=== PATIENT | female | born 1960 | race Caucasian/White ===

== ENCOUNTER 2019-07-05 06:41 | Day surgery (SDC) | payer OTHER, SELFPAY ==
[2019-07-05] VITALS (8 sets, daily range): BP systolic 95–117; BP diastolic 62–79; PULSE 51–58; RESP 10–15; TEMP 35.9–36.3; O2SAT 94–97; BMI 27.1
--- NOTE | 2019-07-05 | PATH_ITS ---
[facility] Accession Number: [id number] . 01 Material submitted: . esophagus - DISTAL ESOPHAGEAL BIOPSY . 02 Diagnosis: Distal Esophagus, Biopsy: Squamous epithelium with no diagnostic abnormality. 0-1 eosinophils per 40X high-power field. Negative for dysplasia or malignancy. MRV 07/06/2019 0957 Local . 02 Electronically signed: . Ramirez Mayes MD, PhD, Pathologist NPI- [id number] . 01 Gross description: . DISTAL ESOPHAGEAL BIOPSY: Received in formalin are 4 fragment(s) of steven, soft tissue measuring 0.1 x 0.1 x 0.1 cm to 0.3 x 0.2 x 0.2 cm which is entirely submitted and submitted entirely in 1 cassette(s) /[facility] [place] 07/05/20191952 Local . 02 Pathologist provided ICD-10: R07.0 . 02 CPT . 418406 Performed at: 01 [facility] [address] [facility], [place], [place] [id number] MD Sage Garcia MD Phone: [phone] Performed at: 02 [facility] [address] [place], [place] [id number] MD Krystin Bautista MD Phone: [phone]
[2019-07-05] MEDS: SODIUM CHLORIDE 0.9% 1,000 ML 200 ML IV (07:14)
--- NOTE | 2019-07-05 07:28 | PM.PREOP ---
Pre-operative Note Interval Note History & Physical reviewed/Exam performed by Physician: Yes Changes to H&P: No ASA Class (for procedural sedation): II
[2019-07-05] MEDS: LIDOCAINE 4% SOLN 50 ML 20 ML TOP (07:44)
[2019-07-05] MEDS: fentaNYL 250 MCG/5 ML INJ IV (07:45)
[2019-07-05] MEDS: MIDAZOLAM 5 MG/5 ML VIAL IV (07:45)
--- NOTE | 2019-07-05 08:04 | SUR.PHASEI ---
0800 Dr Gardner here, spoke to patient, she is very drowsy, response and questions appropriate. Told her that she could doze and to let me know when she is ready for ice chips.
--- NOTE | 2019-07-05 08:04 | PM.OP.ENDO ---
Operative Date/Time/Diagnoses Date of procedure: 07/05/19 Time of procedure: 08:04 Pre-op diagnosis: dysphagia Post-op diagnosis: same Procedure & Clinicians Study performed: Esophagoduodenoscopy Same procedure as scheduled: Yes Indications: 58F with occasional dysphagia with bread products presents for EGD Surgeon: Edmundo Gardner Procedure Notes SCOAP/Timeout: Performed Procedure in detail: Patient placed in left lateral decubitus position. Time out was performed. Procedural sedation was administered with Versed and Fentanyl. A bite block was placed. the scope was inserted into the mouth and advanced through the esophagus and into the stomach. The pylorus was intubated and the duodenum was normal. The scope was retroflexed within the stomach and there was a hiatal hernia. No ulcers, or gastritis. The scope was withdrawn into the esophagus the Z line was seen at 35 cm from the incisions. There was no tinoco's esophagitis or masses or strictures. 4 random biopsies of the Z line were taken with forceps. Stomach was desufflated and scope removed. Patient tolerated procedure well. Findings: hiatal hernia Specimen(s): other (distal esophagus) Complications: none Impression: hiatal hernia Post-procedure Recommendations: Continue medication(s) Disposition: same day surgery
--- NOTE | 2019-07-05 08:21 | SUR.PHASEI ---
tolerated ice chips, returned to sleep.Doesn't remember Dr. Gardner speaking with her, recap of what he said was given to the patient. Stable.
--- NOTE | 2019-07-05 08:32 | SUR.PHASEII ---
Pt denied pain. Spouse at bedside. Call light provided.
== END 2019-07-05 08:55 | disposition home or self-care (01) ==
PROVIDERS: PCP Family Medicine; Visit Provider Surgery
PROC: 0DJ08ZZ Inspection of Upper Intestinal Tract, Via Natural or Artificial Opening Endoscopic (ICD-10-PCS; CPT 43235; principal; 2019-07-05 07:45)
DX: R13.10 Dysphagia, unspecified (principal); K21.9 Gastro-esophageal reflux disease without esophagitis; K44.9 Diaphragmatic hernia without obstruction or gangrene
CPT/HCPCS: 43239; 88305; J2250; J3010